=== PATIENT | male | born 1930 | race Caucasian/White ===

== ENCOUNTER 2016-07-09 08:03 | Inpatient (IN) | payer OTHER ==
[~2016-07-09] VITALS: Ht 175.3 cm; Wt 90.7 kg
[2016-07-09 08:03] VITALS: BP 125/85; PULSE 85; RESP 16; TEMP 97.6; O2SAT 100
[2016-07-09] MEDS ORDERED: ACETAMINOPHEN 500 MG TABLET PO ONE (08:30)
[2016-07-09 10:00] LABS: BASOPHILS % (AUTO) 0.4 % (0.0-2.0); EOSINOPHILS # (AUTO) 0.1 K/uL (0.0-0.4); EOSINOPHILS % (AUTO) 0.8 % (0.0-4.0); HEMATOCRIT 39.4 % (36-54); HEMOGLOBIN 13.4 g/dL (14.0-18.0); LYMPHOCYTES # (AUTO) 1.3 K/uL (1.0-5.5); LYMPHOCYTES % (AUTO) 12.9 % (20.5-51.5); MEAN CORPUSCULAR HEMOGLOBIN 31 pg (27-31); MEAN CORPUSCULAR HGB CONC 34 % (32-36); MEAN CORPUSCULAR VOLUME 92 fL (79.0-98.0); MONOCYTES # (AUTO) 0.7 K/uL (0.0-1.0); MONOCYTES % (AUTO) 6.8 % (1.7-9.3); NEUTROPHILS # (AUTO) 7.8 K/uL (1.8-7.7); NEUTROPHILS % (AUTO) 79.1 % (40.0-70.0); PLATELET COUNT (AUTO) 133 K/uL (130-430); RED BLOOD CELL COUNT(AUTO) 4.28 MIL/uL (4.2-6.2); RED CELL DISTRIBUTION WIDTH 13.8 % (9.0-15.0); WHITE BLOOD COUNT (AUTO) 9.9 K/uL (4.8-10.8)
[2016-07-09] MEDS ORDERED: HYDR25TA4 PO (10:07)
[2016-07-09] MEDS ORDERED: LIP40 PO (10:08)
[2016-07-09] MEDS ORDERED: BENA20TA2 PO (10:08)
[2016-07-09] MEDS ORDERED: HYDR12.55 PO (10:08)
[2016-07-09 10:10] LABS: ANION GAP 7 (5-15); CALCIUM 9.7 mg/dL (8.4-11.0); CHLORIDE 102 mmol/L (98-107); CREATININE 1.26 mg/dL (0.55-1.30); GLUCOSE 111 mg/dL (70-99); POTASSIUM 3.9 mmol/L (3.5-5.1); SODIUM SERUM 138 mmol/L (136-145); UREA NITROGEN, BLOOD 25 mg/dL (8-21)
[2016-07-09 10:11] LABS: PROTHROMBIN TIME 10.8 SECS (9.5-12.5); TOTAL BILIRUBIN 0.6 mg/dL (0.0-1.0)
[2016-07-09 10:12] LABS: ALANINE AMINOTRANSFERASE 28 U/L (12-78); ALBUMIN 3.9 g/dL (3.4-4.8); ASPARTATE AMINOTRANSFERASE 25 U/L (10-37); TOTAL PROTEIN, SERUM 7.9 g/dL (6.4-8.3)
[2016-07-09 11:24] VITALS: BP 146/98; PULSE 108; RESP 17; TEMP 98.5; O2SAT 95
[2016-07-09 11:25] VITALS: BP 146/98; PULSE 109; RESP 24; TEMP 98.5; O2SAT 95
[2016-07-09] MEDS ORDERED: ONDANSETRON HCL 4 MG/2 ML VIAL IVP PRN (11:45)
[2016-07-09] MEDS: MORPHINE 2 MG/ML INJ. SYRINGE IVP PRN ×7 (12:30→21:09)
[2016-07-09] MEDS ORDERED: ENOXAPARIN SODIUM 40 MG/0.4 ML SYRINGE SUBCUT ONE (12:45)
[2016-07-09 16:14] VITALS: BP 97/69; PULSE 80; PULSE 86; RESP 18; RESP 20; TEMP 97.2; TEMP 97.4; O2SAT 100; O2SAT 96
[2016-07-09 16:15] LABS: BILIRUBIN,URINE NEGATIVE (NEGATIVE); CLARITY/URINE CLEAR (CLEAR); COLOR,URINE YELLOW (YELLOW); GLUCOSE,URINE NEGATIVE (NEGATIVE); KETONES,URINE NEGATIVE (NEGATIVE); LEUKOCYTE ESTERASE ,URINE NEGATIVE (NEGATIVE); NITRITE, URINE NEGATIVE (NEGATIVE); PH,URINE 7.5 (5.0-8.0); PROTEIN URINE NEGATIVE (NEGATIVE); UROBILINOGEN,URINE 0.2 (0.2-1.0)
[2016-07-09] MEDS: 0.45% NACL 1,000 ML IV SCH (16:18)
[2016-07-09 16:45] LABS: BLOOD, URINE TRACE (NEGATIVE)
[2016-07-09 16:50] LABS: RBC,URINE 0-3 /HPF (0-3); WBC,URINE 0-3 /HPF (0-3)
[2016-07-09 16:51] LABS: BACTERIA,URINE None Seen /HPF (None Seen)
[2016-07-09 19:04] VITALS: BP 108/69; PULSE 68; RESP 18; TEMP 99.1; O2SAT 93
[2016-07-10] VITALS (7 sets, daily range): BP systolic 88–150; BP diastolic 44–84; PULSE 75–104; RESP 16–19; TEMP 97–101.6; O2SAT 91–97
[2016-07-10] MEDS: 0.45% NACL 1,000 ML IV SCH ×2 (01:48→21:38)
[2016-07-10 06:51] LABS: BASOPHILS # (AUTO) 0.1 K/uL (0.0-0.2); BASOPHILS % (AUTO) 0.7 % (0.0-2.0); EOSINOPHILS # (AUTO) 0.3 K/uL (0.0-0.4); EOSINOPHILS % (AUTO) 3.4 % (0.0-4.0); HEMATOCRIT 36.4 % (36-54); HEMOGLOBIN 12.4 g/dL (14.0-18.0); LYMPHOCYTES # (AUTO) 1.2 K/uL (1.0-5.5); MEAN CORPUSCULAR HEMOGLOBIN 31 pg (27-31); MEAN CORPUSCULAR HGB CONC 34 % (32-36); MEAN CORPUSCULAR VOLUME 92 fL (79.0-98.0); MONOCYTES # (AUTO) 0.8 K/uL (0.0-1.0); MONOCYTES % (AUTO) 9.5 % (1.7-9.3); NEUTROPHILS # (AUTO) 6.5 K/uL (1.8-7.7); NEUTROPHILS % (AUTO) 73.4 % (40.0-70.0); PLATELET COUNT (AUTO) 120 K/uL (130-430); RED BLOOD CELL COUNT(AUTO) 3.96 MIL/uL (4.2-6.2); RED CELL DISTRIBUTION WIDTH 13.4 % (9.0-15.0); WHITE BLOOD COUNT (AUTO) 8.9 K/uL (4.8-10.8)
[2016-07-10 07:03] LABS: ALANINE AMINOTRANSFERASE 24 U/L (12-78); ALBUMIN 3.3 g/dL (3.4-4.8); ANION GAP 7 (5-15); ASPARTATE AMINOTRANSFERASE 36 U/L (10-37); CALCIUM 8.7 mg/dL (8.4-11.0); CHLORIDE 96 mmol/L (98-107); CREATININE 1.11 mg/dL (0.55-1.30); GLUCOSE 94 mg/dL (70-99); POTASSIUM 4.1 mmol/L (3.5-5.1); SODIUM SERUM 131 mmol/L (136-145); TOTAL BILIRUBIN 1.2 mg/dL (0.0-1.0); UREA NITROGEN, BLOOD 21 mg/dL (8-21)
[2016-07-10] MEDS ORDERED: POLYMYXIN 500,000/BACIT.10,000 UNITS in NS IRR 1 L IR ONE ×2 (08:19→08:21)
[2016-07-10] MEDS ORDERED: LR 1,000 ML IV ONE (08:35)
[2016-07-10] MEDS ORDERED: ePHEDrine sulfate 50 MG/ML VIAL IVP PRN (08:45)
[2016-07-10] MEDS ORDERED: ONDANSETRON HCL 4 MG/2 ML VIAL IVP PRN ×2 (08:45)
[2016-07-10] MEDS ORDERED: fentaNYL CITRATE/PF 100 MCG/2 ML AMP IVP PRN (08:45)
[2016-07-10] MEDS ORDERED: NALBUPHINE HCL 10 MG/ML AMP IVP PRN (08:45)
[2016-07-10] MEDS ORDERED: DIPHENHYDRAMINE INJ 50 MG/ML VIAL IVP PRN (08:45)
[2016-07-10] MEDS ORDERED: NALOXONE HCL 0.4 MG/ML AMP (NARCAN) IVP PRN (08:45)
[2016-07-10] MEDS ORDERED: ENOXAPARIN SODIUM 40 MG/0.4 ML SYRINGE SUBCUT SCH (09:00)
[2016-07-10] MEDS: ATORVASTATIN 20 MG TABLET PO SCH (10:35)
[2016-07-10] MEDS: BENAZEPRIL HCL 20 MG TABLET (LOTENSIN) PO SCH (10:36)
[2016-07-10] MEDS: CEFAZOLIN 2 GM IVPB PREMIX 50 ML IV SCH ×2 (13:38→21:37)
[2016-07-10] MEDS ORDERED: fentaNYL CITRATE/PF 100 MCG/2 ML AMP ONE (14:00)
[2016-07-10] MEDS ORDERED: MIDAZOLAM HCL 5 MG/5 ML VIAL ONE (14:00)
[2016-07-10] MEDS ORDERED: ROCURONIUM BROMIDE 10 MG/ML (ZEMURON) ONE (14:00)
[2016-07-10] MEDS ORDERED: GLYCOPYRROLATE 0.2 MG/ML VIAL ONE (14:00)
[2016-07-10] MEDS ORDERED: WATER FOR IRRIGATION,STERILE 1,000 ML IRRIG.SOLN IR ONE (14:00)
[2016-07-10] MEDS ORDERED: BUPIVACAINE /EPINEPHRINE/PF 0.5% 30 ML VIAL INJ ONE (14:00)
[2016-07-10] MEDS ORDERED: SEVOFLURANE 15 MIN GAS INH ONE (14:00)
[2016-07-10] MEDS ORDERED: CEFAZOLIN 2 GM IVPB PREMIX 50 ML IV ONE (14:00)
[2016-07-10] MEDS ORDERED: PROPOFOL 200MG/ 20ML VIAL (DIPRIVAN) IV ONE (14:00)
[2016-07-10] MEDS ORDERED: NS 1000 ML BAG IV ONE (14:00)
[2016-07-10] MEDS ORDERED: ACETAMINOPHEN 325 MG TABLET PO PRN (21:30)
[2016-07-10] MEDS ORDERED: 0.45% NACL 1,000 ML IV SCH (21:45)
[2016-07-10] MEDS: MORPHINE 2 MG/ML INJ. SYRINGE IVP PRN (22:34)
[2016-07-11] VITALS (7 sets, daily range): BP systolic 93–122; BP diastolic 53–67; PULSE 82–89; RESP 18–19; TEMP 97.2–99.2; O2SAT 92–95
[2016-07-11] MEDS ORDERED: IPRATROPIUM BROM 0.5 MG/2.5 ML VIAL.NEB (ATROVENT) INH PRN (07:00)
[2016-07-11] MEDS ORDERED: ALBUTEROL SULFATE 0.083% 2.5 MG/3 ML VIAL.NEB INH PRN (07:00)
[2016-07-11] MEDS: ALBUTEROL SULFATE 0.083% 2.5 MG/3 ML VIAL.NEB INH SCH ×4 (07:00→21:33)
[2016-07-11] MEDS: IPRATROPIUM BROM 0.5 MG/2.5 ML VIAL.NEB (ATROVENT) INH SCH ×4 (07:00→21:33)
[2016-07-11 07:39] LABS: BLOOD GAS PH 7.421 (7.350-7.450)
[2016-07-11 07:40] LABS: ABG TOTAL HEMOGLOBIN 11.7 G/dL (12.0-18.0); BLOOD GAS BASE EXCESS -0.3 mmol/L (-3.0-3.0); BLOOD GAS COHb% 1.8 % (0.5-1.5); BLOOD GAS HHB 11.8 % (0.0-6.0); BLOOD O2Hb% 86.2 % (94.0-97.0)
[2016-07-11] MEDS: ATORVASTATIN 20 MG TABLET PO SCH (11:19)
[2016-07-11] MEDS: ENOXAPARIN SODIUM 40 MG/0.4 ML SYRINGE SUBCUT SCH (11:19)
[2016-07-11] MEDS: MORPHINE 2 MG/ML INJ. SYRINGE IVP PRN (11:55)
[2016-07-11] MEDS: cefTRIAXone 1 GM IVPB PREMIX 50 ML IV SCH (11:56)
[2016-07-11] MEDS ORDERED: IOHEXOL 350 mgI/mL, 150 ML INFUS..BTL IV ONE (17:36)
[2016-07-12 00:07] VITALS: BP 99/58; PULSE 77; RESP 17; TEMP 97.8; O2SAT 95
[2016-07-12 04:41] VITALS: BP 108/66; PULSE 74; RESP 17; TEMP 97.5; O2SAT 96
[2016-07-12] MEDS: IPRATROPIUM BROM 0.5 MG/2.5 ML VIAL.NEB (ATROVENT) INH SCH ×3 (07:12→15:31)
[2016-07-12] MEDS: ALBUTEROL SULFATE 0.083% 2.5 MG/3 ML VIAL.NEB INH SCH ×3 (07:12→15:31)
[2016-07-12 08:00] VITALS: BP 108/60; PULSE 85; RESP 16; TEMP 98.5; O2SAT 96
[2016-07-12] MEDS: BENAZEPRIL HCL 20 MG TABLET (LOTENSIN) PO SCH (09:00)
[2016-07-12] MEDS: ATORVASTATIN 20 MG TABLET PO SCH (09:01)
[2016-07-12] MEDS: ENOXAPARIN SODIUM 40 MG/0.4 ML SYRINGE SUBCUT SCH (09:01)
[2016-07-12] MEDS: cefTRIAXone 1 GM IVPB PREMIX 50 ML IV SCH (09:02)
[2016-07-12] MEDS: MORPHINE 2 MG/ML INJ. SYRINGE IVP PRN (09:03)
[2016-07-12 10:30] LABS: BASOPHILS % (AUTO) 0.3 % (0.0-2.0); EOSINOPHILS # (AUTO) 0.1 K/uL (0.0-0.4); HEMATOCRIT 28.2 % (36-54); HEMOGLOBIN 9.6 g/dL (14.0-18.0); LYMPHOCYTES # (AUTO) 0.8 K/uL (1.0-5.5); MEAN CORPUSCULAR HEMOGLOBIN 31 pg (27-31); MEAN CORPUSCULAR HGB CONC 34 % (32-36); MEAN CORPUSCULAR VOLUME 92 fL (79.0-98.0); MONOCYTES # (AUTO) 1.4 K/uL (0.0-1.0); MONOCYTES % (AUTO) 13.9 % (1.7-9.3); NEUTROPHILS # (AUTO) 7.9 K/uL (1.8-7.7); NEUTROPHILS % (AUTO) 76.8 % (40.0-70.0); PLATELET COUNT (AUTO) 111 K/uL (130-430); RED BLOOD CELL COUNT(AUTO) 3.05 MIL/uL (4.2-6.2); RED CELL DISTRIBUTION WIDTH 13.4 % (9.0-15.0); WHITE BLOOD COUNT (AUTO) 10.2 K/uL (4.8-10.8)
[2016-07-12 11:32] VITALS: BP 101/54; PULSE 82; RESP 19; TEMP 98; O2SAT 98
[2016-07-12 17:21] VITALS: BP 104/54; PULSE 80; RESP 18; TEMP 98.1; O2SAT 97
[2016-07-12 17:39] VITALS: BP 104/54; PULSE 80; RESP 18; TEMP 98.1; O2SAT 97
== END 2016-07-12 19:40 | DRG 470 ==
LOC: SED 08:03 → SMU 10:26
PROVIDERS: ATTEND Internal Medicine Hospice and Palliative Medicine
PROC: 0SRS0JZ Replacement of Left Hip Joint, Femoral Surface with Synthetic Substitute, Open Approach (ICD-10-PCS; principal; 2016-07-10 07:30)
DX: S72.002A Fracture of unspecified part of neck of left femur, initial encounter for closed fracture (principal); J98.11 Atelectasis; I10 Essential (primary) hypertension; E78.00 Pure hypercholesterolemia, unspecified; W18.30XA Fall on same level, unspecified, initial encounter; Y93.01 Activity, walking, marching and hiking; E78.5 Hyperlipidemia, unspecified; W18.39XA Other fall on same level, initial encounter; Y92.89 Other specified places as the place of occurrence of the external cause; Y99.8 Other external cause status; Z79.899 Other long term (current) drug therapy; R50.9 Fever, unspecified
CPT/HCPCS: 36415; 36600; 71010; 71275; 72170-TC; 73510-TC; 73552; 80053; 81000-TC; 82803-TC; 85025; 85610-TC; 85730-TC; 86886; 86900; 86901; 87040-TC; 87081; 87086; 88305; 88311; 93005; 93306; 93970; 94640; 94760; 97110-GP; 97116-GP; 97530-GP; 99285; C1713; C1776; J0690; J0696; J1650; J2250; J2270; J2405; J2704; J3010; J3490; J7030; Q9967